=== PATIENT | female | born 1960 | race African-American/Black ===

== ENCOUNTER 2019-11-12 22:08 | Emergency (ER) | payer MEDICAID ==
[~2019-11-12] VITALS: Ht 170.2 cm; Wt 61.0 kg
[2019-11-12] MEDS ORDERED: ONDANSETRON HCL 4MG/2ML INJ IV STA (22:45)
[2019-11-12] MEDS ORDERED: OLANZAPINE 10 MG/VIAL IM ONE (22:45)
[2019-11-12] MEDS ORDERED: LORAZEPAM 2MG/ML CPJ IV ONE (22:45)
[2019-11-12] MEDS ORDERED: FAMOTIDINE 20MG/2ML VIAL IV STA (22:45)
[2019-11-12] MEDS ORDERED: SODIUM CHLORIDE 0.9% 1000ML BAG (SEPSIS BOLUS) IV ONE (22:45)
[2019-11-12 23:16] LABS: BASOPHILS % 0.5 % (0.0-2.0); EOSINOPHILS % 2.4 % (0.0-5.0); HEMATOCRIT. 36.8 % (36.0-48.0); LYMPHOCYTES % 28.6 % (20.0-50.0); MEAN CORPUSCULAR HEMOGLOBIN 28.2 pg (28.0-32.0); MEAN CORPUSCULAR VOLUME 86.2 fL (81.0-99.0); MEAN PLATELET VOLUME 8.1 fl (7.4-10.4); NEUTROPHILS % 59.5 % (40.0-76.0); PLATELET 205 x1000/uL (130-400); RED BLOOD CELL COUNT 4.27 mill/uL (4.2-5.4)
[2019-11-12 23:22] LABS: PROTHROMBIN TIME 10.2 sec (9.6-11.0)
[2019-11-12 23:28] LABS: CHLORIDE 108 mEq/L (98-107)
[2019-11-12 23:32] LABS: ETHANOL BLOOD < 10 mg/dL
[2019-11-12 23:55] LABS: CLARITY URINE CLEAR (CLEAR); COLOR URINE YELLOW (YELLOW); KETONES URINE NEGATIVE (NEGATIVE); LEUKOCYTE ESTERASE URINE NEGATIVE (NEGATIVE); NITRITE URINE NEGATIVE (NEGATIVE); OCCULT BLOOD URINE NEGATIVE (NEGATIVE); PH URINE 5.5 (4.5-8.0); PROTEIN URINE 1+ (NEGATIVE)
[2019-11-13 00:08] LABS: *AMPHETAMINES SCREEN URINE NEGATIVE (NEGATIVE); *BARBITURATES SCREEN URINE NEGATIVE (NEGATIVE); *BENZODIAZEPINES SCREEN URINE PRESUMTIVE POSITIVE (NEGATIVE); *COCAINE SCREEN URINE PRESUMTIVE POSITIVE (NEGATIVE)
[2019-11-13 00:09] LABS: CANNABINOID URINE SCREEN PRESUMTIVE POSITIVE (NEGATIVE); METHADONE URINE SCREEN NEGATIVE (NEGATIVE); OPIATES URINE SCREEN NEGATIVE (NEGATIVE); PHENCYCLIDINE URINE SCREEN NEGATIVE (NEGATIVE)
[2019-11-13 09:05] VITALS: BP 159/100
== END 2019-11-13 09:06 | disposition home or self-care (01) ==
LOC: ER 22:27 → EDBD 22:27 → ER 11-13 09:06 → CANBEDREQ 11-13 20:32
DX: T42.4X1A Poisoning by benzodiazepines, accidental (unintentional), initial encounter (principal); T40.5X1A Poisoning by cocaine, accidental (unintentional), initial encounter; T40.7X1A Poisoning by cannabis (derivatives), accidental (unintentional), initial encounter; G92 Toxic encephalopathy; F10.129 Alcohol abuse with intoxication, unspecified; Y92.488 Other paved roadways as the place of occurrence of the external cause
CPT/HCPCS: 36415; 70450; 71045; 80053; 80305; 80307; 80320; 80329; 81003; 83605; 83690; 83930; 84484; 85025; 85610; 86850; 86900; 86901; 87040; 96361; 96374; 96375; 99291; J2060; J2405; J3490; J7030; G0480